=== PATIENT | female | born 1995 ===

== ENCOUNTER 2018-11-21 03:55 | Emergency (ER) | payer OTHER ==
[~2018-11-21] VITALS: Ht 157.5 cm; Wt 59.1 kg
[2018-11-21 04:02] VITALS: BP 124/74
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
[2018-11-21] MEDS ORDERED: GABA300C10 PO (04:13)
[2018-11-21] MEDS ORDERED: CLON0.25 PO (04:13)
--- NOTE | 2018-11-21 04:18 | NUR ---
PT. TO [facility] WITH [employer].
== END 2018-11-21 04:19 | disposition home or self-care (01) ==
LOC: ED 04:08
DX: T76.21XA Adult sexual abuse, suspected, initial encounter (principal); F17.210 Nicotine dependence, cigarettes, uncomplicated
CPT/HCPCS: 99283; 99284

== ENCOUNTER 2018-11-22 15:41 | Emergency (ER) | payer SELFPAY ==
[~2018-11-22] VITALS: Ht 157.5 cm; Wt 63.7 kg
[~2018-11-22 15:41] MED LIST: CLON0.25 PO; GABA300C10 PO
[2018-11-22] MEDS ORDERED: THIAMINE 100MG TABLET PO ONE (16:00)
[2018-11-22] MEDS ORDERED: PLEASE ENTER HEIGHT AND WEIGHT MC SCH (16:00)
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
[2018-11-22 16:06] LABS: BASOPHILS # (AUTO) 0.05 x10^3/uL (0-0.1); BASOPHILS % (AUTO) 1 % (0-1); EOSINOPHILS # (AUTO) 0.01 x10^3/uL (0-0.4); EOSINOPHILS % (AUTO) 0 % (1-7); LYMPHOCYTES # (AUTO) 2.04 x10^3/uL (1-3.4); LYMPHOCYTES % (AUTO) 22 % (22-44); MD NO; MEAN CORPUSCULAR HEMOGLOBIN 30.7 pg (27.0-34.8); MEAN CORPUSCULAR HGB CONC 33.1 g/dL (32.4-35.8); MEAN PLATELET VOLUME 7.9 fL (7.4-10.4); MONOCYTES # (AUTO) 0.64 x10^3/uL (0.2-0.8); MONOCYTES % (AUTO) 7 % (2-9); NEUTROPHILS # (AUTO) 6.43 x10^3/uL (1.8-6.8); NEUTROPHILS % (AUTO) 70 % (42-75); PLATELET COUNT 264 x10^3/uL (130-400); RED BLOOD COUNT 4.64 x10^6/uL (3.82-5.3)
--- NOTE | 2018-11-22 16:10 | NUR ---
SBAR report received from RN, Yuniel. Pt resting on [facility].
[2018-11-22 16:17] LABS: ALANINE AMINOTRANSFERASE 43 U/L (12-78); ALBUMIN 4.1 g/dL (3.4-5.0); ANION GAP 11 mmol/L (5-15); CALCIUM 7.8 mg/dL (8.5-10.1); CHLORIDE 110 mmol/L (98-107); CREATININE 0.91 mg/dL (0.55-1.02)
[2018-11-22 16:21] LABS: ALKALINE PHOSPHATASE 98 U/L (45-117); BILIRUBIN,TOTAL 0.3 mg/dL (0.2-1.0)
[2018-11-22] MEDS ORDERED: THIAMINE 100MG TABLET ONE (16:29)
--- NOTE | 2018-11-22 16:40 | NUR ---
Pt medicated per NOV. Tolerating PO fluids well.
[2018-11-22 17:07] VITALS: BP 104/57
--- NOTE | 2018-11-22 17:15 | NUR ---
Pt sleeping on guchristie, VSS.
--- NOTE | 2018-11-22 18:00 | NUR ---
Pt has eloped from room and is at registration desk checking in.
== END 2018-11-22 18:09 | disposition left against medical advice (07) ==
LOC: ED 15:56
DX: F10.220 Alcohol dependence with intoxication, uncomplicated (principal); F17.200 Nicotine dependence, unspecified, uncomplicated; G40.909 Epilepsy, unspecified, not intractable, without status epilepticus
CPT/HCPCS: 36415; 80053; 80307; 84703; 85025; 99283

== ENCOUNTER 2018-11-22 17:56 | Emergency (ER) | payer SELFPAY ==
[~2018-11-22] VITALS: Ht 157.5 cm; Wt 64.0 kg
--- NOTE | 2018-11-22 18:13 | NUR ---
NO ANSWER IN LOBBY
--- NOTE | 2018-11-22 18:34 | NUR ---
NAX2
--- NOTE | 2018-11-22 18:54 | NUR ---
PT REFUSED TO WAIT TO SEE [employer]. PT LEFT PRIOR TO BEING SEEN
== END 2018-11-22 18:59 | disposition left against medical advice (07) ==
LOC: ED 18:03
DX: Z71.89 Other specified counseling (principal)
CPT/HCPCS: 99281